=== PATIENT | male | born 1990 | race Native Hawaiian/Other Pacific Islander ===

== ENCOUNTER 2020-01-11 10:57 | Emergency (ER) | payer OTHER ==
[~2020-01-11] VITALS: Ht 190.5 cm; Wt 97.5 kg
[2020-01-11 11:09] VITALS: BP 155/70; TEMP 98.1
[2020-01-11 12:02] LABS: PLATELET COUNT 281 K/uL (142-355)
[2020-01-11 12:07] LABS: POTASSIUM 4.2 mmol/L (3.6-5.2)
== END 2020-01-11 16:20 | disposition other institution (70) ==
LOC: ED 10:57
PROVIDERS: Family Medicine
DX: F31.89 Other bipolar disorder (principal); F19.10 Other psychoactive substance abuse, uncomplicated
CPT/HCPCS: 80053; 80307; 80329; 81000; 85027; 93005; 99285